=== PATIENT | male | born 1945 | race Caucasian/White ===

== ENCOUNTER 2019-04-30 19:49 | Emergency (ER) | payer OTHER | END 2019-04-30 23:25 | disposition home or self-care (01) | LOC: FTE 19:49 | DX: S13.4XXA Sprain of ligaments of cervical spine, initial encounter (principal); R51 Headache; V53.6XXA Passenger in pick-up truck or van injured in collision with car, pick-up truck or van in traffic accident, initial encounter | CPT/HCPCS: 70450; 72125; 99284-25 ==